=== PATIENT | female | born 1960 | race Two or more races ===

== ENCOUNTER 2017-11-22 21:54 | Emergency (ER) | payer BC ==
[2017-11-22] MEDS ORDERED: ONDANSETRON HCL IV 4 MG/2 ML VIAL IVP ONE (22:28)
--- NOTE | 2017-11-22 22:33 | Emergency Department Record ---
History of Present Illness - General Chief Complaint: Abdominal Pain Stated Complaint: HIGH HEART RATE Time Seen by Provider: 11/22/17 22:12 Source: Patient Mode of Arrival: Ambulatory Limitations: No limitations - History of Present Illness Initial Comments: The patient is here due to a 3 day hx of upper AP. She describes the pain as sharp and stabbing and mainly in the epigastric region and it is associated with nausea but no vomiting. The patient also has been constipated for the 3 days and has not had a BM. Additionally she did take her pulse at home and it was 100 which was fast for her. When she was at home with the pulse of 100 she did have some very vague chest discomfort retrosternally that lasted about a minute that was not associated with any SOB, MICHAEL, sweating, or lightheadedness. That did resolve with no difficulty and then on the way to the ER she did have R flank pain for a minute or 2 but that also resolved. The patient's only abdominal surgery was a PEPE. MD Complaint: Abdominal pain Onset/Timin -: Days(s) Location: Epigastric Worsens With: Nothing Associated Symptoms: Constipation, Nausea - Related Data Patient : No Previous Rx's Medication Instructions Recorded Sucralfate [Carafate] 1 gm PO QID #28 tablet 11/23/17 Allergies Allergy/AdvReac Type Severity Reaction Status Date / Time adhesive Allergy HIVES Verified 07/11/16 11:48 amitriptyline HCl Allergy CHEST PAIN Verified 07/11/16 11:48 [From Elavil] codeine Allergy HIVES Verified 07/11/16 11:48 erythromycin base Allergy CHEST PAIN Verified 07/11/16 11:48 Sulfa (Sulfonamide Allergy CHEST PAIN Verified 07/11/16 11:48 Antibiotics) Travel Screening - Travel/Exposure Within Last 30 Days Have you traveled within the last 30 days?: No Review of Systems Constitutional: Denies: Chills, Fever Eyes: Denies: Eye discharge ENT: Denies: Congestion Respiratory: Denies: Cough, Dyspnea Past Medical History - SOCIAL HISTORY Smoking Status: Never smoker Alcohol Use: None Drug Use: None - RESPIRATORY Hx Respiratory Disorders: No - CARDIOVASCULAR Hx Cardio Disorders: No - NEURO Hx Neuro Disorders: Yes Hx Seizures: Yes (during surgery) - GI Hx GI Disorders: No - Hx Genitourinary Disorders: No - ENDOCRINE Hx Endocrine Disorders: No - MUSCULOSKELETAL Hx Musculoskeletal Disorders: No - PSYCH Hx Psych Problems: No - HEMATOLOGY/ONCOLOGY Hx Hematology/Oncology Disorders: No Family Medical History Any Significant Family History?: Yes Hx Diabetes: Mother Hx Kidney Disease: Mother Physical Exam - General General Appearance: Alert, Oriented x3, Cooperative, No acute distress - Head Head exam: Atraumatic, Normocephalic, Normal inspection - Eye Eye exam: Normal appearance, PERRL - Neck Neck exam: Normal inspection, Full ROM. negative: Tenderness - Respiratory Respiratory exam: Normal lung sounds bilaterally. negative: Respiratory distress - Cardiovascular Cardiovascular Exam: Regular rate, Normal rhythm, Systolic murmur (2/6 chronic.) . negative: Diastolic murmur, Irregular rhythm - GI/Abdominal GI/Abdominal exam: Soft, Tenderness (There is mild epigastric tenderness to palpation.). negative: Distended, Rebound, Rigid - Extremities Extremities exam: Normal inspection, Full ROM, Normal capillary refill. negative: Tenderness - Neurological Neurological exam: Alert, Normal gait. negative: Abnormal gait, Motor sensory deficit Course Vital Signs 11/22/17 22:02 Temperature 98.1 F Pulse Rate [ 85 Pulse Ox Probe] Respiratory 16 Rate Blood Pressure 153/95 [Left Arm] Pulse Ox 96 - Reevaluation(s) Reevaluation #1: The patient is doing better at this time. She denies any significant pain or nausea and is resting comfortably. I did discuss the issues with the patient and did recommend further evaluation with her PCP early this week. She is to take Carafate at home and use the bottle of Mg Citrate at home and is to see her PCP this week for recheck. I strongly doubt any cardiac issues due to the fact the patient has no cardiac risk factors and only had vague discomfort for a minute or so. She is to F/U with GI if not better with this treatment. 11/23/17 00:29 Medical Decision Making - Data Complexity MDM Data: Labs Ordered and/or Reviewed, X-Ray Ordered and/or Reviewed, EKG Ordered and/or Reviewed - Lab Data Result diagrams: 11/22/17 22:35 11/22/17 22:35 - EKG Data -: EKG Interpreted by Me EKG: No Acute Changes, Unchanged From Previous - Radiology Data Radiology results: Report reviewed (AbdCT: Neg for any acute findings.) Disposition Disposition: Discharge Clinical Impression: Constipation Qualifiers: Constipation type: unspecified constipation type Qualified Code(s): K59.00 - Constipation, unspecified Disposition: Home, Self-Care Condition: (2) Stable Instructions: Constipation (ED) Additional Instructions: Please take the Carafate as directed and drink the bottle of Mg Citrate tomorrow. Please see your family doctor this week for recheck and return to the ER for any worsening problems. Prescriptions: Sucralfate [Carafate] 1 gm PO QID #28 tablet Forms: Patient Portal Access Time of Disposition: 00:36 Quality - Quality Measures Quality Measures: N/A - Blood Pressure Screening View Details: Yes Does Patient Have Any of the Following: No Blood Pressure Classification: Normal BP Reading Systolic Measurement: 114 Diastolic Measurement: 71 Screening for High Blood Pressure: < Normal BP, F/U Not Required > [G8783]
[2017-11-22 22:39] LABS: BASO % 0.4 % (0-6); EOS % 2.7 % (0-6); HEMATOCRIT 36.7 % (35.0-47.0); HEMOGLOBIN 12.4 gm/dl (11.6-16.0); LYMPH % 37.7 % (16-45); MEAN CELL VOLUME 91.1 fl (81-97); MEAN CORPUSCULAR HEMOGLOBIN 30.8 pg (27-33); MEAN CORPUSCULAR HGB CONC 33.8 g/dl (32-36); MONO % 9.2 % (0-9); PLATELET COUNT 281 K/uL (130-400); RED BLOOD COUNT 4.03 M/uL (3.80-5.40); RED CELL DISTRIBUTION WIDTH 12.3 % (11.5-14.5); WHITE BLOOD COUNT W/O DIFF 5.6 K/uL (4.2-12.2)
[2017-11-22] MEDS ORDERED: 0.9 % SODIUM CHLORIDE 1,000 ML BAG IV ONE (22:44)
[2017-11-22 22:52] LABS: BLOOD UREA NITROGEN 23 mg/dL (6-20); CREATININE 0.6 mg/dL (0.5-0.9); EST GLOMERULAR FILTRATION RATE > 60 mL/min
[2017-11-22 22:53] LABS: TOTAL PROTEIN 7.6 g/dL (6.6-8.7)
[2017-11-22 22:55] LABS: GLUCOSE,RANDOM 99 mg/dL (74-109)
[2017-11-22 22:57] LABS: ALBUMIN 4.1 g/dL (4.0-5.0); ALKALINE PHOSPHATASE 85 U/L (35-104); ALT/SGPT 11 U/L (<33); AST/SGOT 19 U/L (10.0-35.0); BILIRUBIN,DIRECT < 0.2 mg/dL (0-0.3); CREATINE PHOSPHOKINASE 77 U/L (26-192); LIPASE 29 U/L (13-60)
[2017-11-22 22:59] LABS: CKMB 1.5 ng/mL (<3.77)
[2017-11-22 23:09] LABS: THYROID STIMULATING HORMONE 3.23 uIU/mL (0.270-4.20)
[2017-11-22 23:47] LABS: URINE APPEARANCE CLEAR; URINE BILIRUBIN NEGATIVE (NEGATIVE); URINE BLOOD NEGATIVE (NEGATIVE); URINE COLOR YELLOW; URINE GLUCOSE (UA) NEGATIVE (NEGATIVE); URINE KETONE NEGATIVE (NEGATIVE); URINE LEUKOCYTE ESTERASE NEGATIVE (NEGATIVE); URINE NITRITE NEGATIVE (NEGATIVE); URINE PROTEIN NEGATIVE (NEGATIVE); URINE UROBILINOGEN 0.2 E.U./dL (0.20 - 1.00)
[2017-11-23] MEDS ORDERED: MAGNESIUM CITRATE 296 ML BTL PO ONE (00:29)
--- NOTE | 2017-11-24 09:28 | CT SCAN REPORT ---
EXAM: EMERGENCY CT SCAN OF THE ABDOMEN AND PELVIS WITH CONTRAST HISTORY: UPPER ABDOMINAL PAIN. PRIOR HYSTERECTOMY. TECHNIQUE: Axial CT scan of the abdomen and pelvis was obtained following both oral and IV contrast administration utilizing a dose of 100 ml of Omnipaque 300 as the IV contrast. A preliminary report was provided by [facility]. Comparison: No prior CT with which to compare. FINDINGS: No calcified gallstones are seen within the gallbladder. There is a single small area of low attenuation on the initial post contrast sequence which measures about 9 mm in size. This was not clearly seen on the post contrast sequence, and probably represents a very small cavernous hemangioma. Comparison with any old films would be useful to confirm a stable appearance. No definite splenic mass seen with an appearance consistent with a small accessory spleen just anterior to the spleen itself. No definite adrenal, pancreatic, or renal mass identified. There is a small amount of calcification associated with the right renal artery which may be a very small right renal artery aneurysm. Thickening of the distal stomach in the region of the pylorus is presumably just due to incomplete distention. If there is any clinical concern for this region of the stomach, follow-up upper GI or endoscopy would be suggested. The uterus is not identified consistent with the surgical history. The appendix appears negative with no appendicitis evident. No free intraperitoneal air or free intraperitoneal fluid evident. There is a small benign appearing area of sclerosis in the right superior pubic ramus. There are some mildly prominent mesenteric nodes seen, but no definite adenopathy identified in the abdomen or pelvis. IMPRESSION: 1. SMALL LOW ATTENUATION FOCUS RIGHT LOBE OF THE LIVER ON THE INITIAL POST CONTRAST SEQUENCE NOT EVIDENT ON THE ROUTINE DELAY IMAGES, NONSPECIFIC ALTHOUGH MAY WELL REPRESENT A SMALL INCIDENTAL CAVERNOUS HEMANGIOMA. COMPARISON WITH ANY PRIOR CT SCANS WOULD BE USEFUL TO CONFIRM A STABLE APPEARANCE. 2. THICK WALLED APPEARANCE OF THE REGION OF THE PYLORUS OF THE STOMACH IS ALSO NONSPECIFIC ALTHOUGH PRESUMABLY JUST DUE TO INCOMPLETE DISTENTION. IF THERE IS ANY CLINICAL CONCERN FOR THIS REGION OF THE GI TRACT, FOLLOW-UP UPPER GI OR ENDOSCOPY WOULD BE SUGGESTED. 3. SMALL ACCESSORY SPLEEN. 4. 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 5. POSTOP HYSTERECTOMY. 6. THE APPENDIX APPEARS NEGATIVE. NO FREE AIR OR FREE FLUID EVIDENT. 7. SOME MILDLY PROMINENT MESENTERIC NODES, BUT NO DEFINITE ADENOPATHY IDENTIFIED. JOB NUMBER: [id number] [facility]
== END 2017-11-23 00:44 | disposition home or self-care (01) ==
LOC: ER 21:54
DX: K59.00 Constipation, unspecified (principal); R10.13 Epigastric pain; R11.0 Nausea; R07.9 Chest pain, unspecified
CPT/HCPCS: 99284 ×2; 96374; 82550; 83690; 85025; 80076; 82553; 80048; 81003; 84443; 84484; 74177; 93005; 93010; Q9967; J2405; J7030